=== PATIENT | female | born 1990 | race Asian ===

== ENCOUNTER 2021-02-03 18:41 | Emergency (ER) | payer OTHER ==
[2021-02-03 19:19] LABS: BASOPHILS % (AUTO) 0.5 %; EOSINOPHILS # (AUTO) 0.1 10^3/uL (0.0-0.7); EOSINOPHILS % (AUTO) 1.5 %; HGB - HEMOGLOBIN 12.5 g/dL (12.0-16.0); LYMPHOCYTES # (AUTO) 2.7 10^3/uL (1.5-3.5); LYMPHOCYTES % (AUTO) 31.8 %; MEAN CORPUSCULAR HGB CONC 32.9 g/dL (32.0-36.0); MEAN CORPUSCULAR VOLUME 91.3 fL (81.0-99.0); MEAN PLATELET VOLUME 8.9 fL (7.9-10.8); MONOCYTES # (AUTO) 0.6 10^3/uL (0.0-1.0); MONOCYTES % (AUTO) 7.5 %; NEUTROPHILS % (AUTO) 58.6 %; PLT - PLATELET COUNT 311 10^3/uL (130-450); RED BLOOD COUNT 4.16 10^6/uL (4.20-5.40); RED CELL DISTRIBUTION WIDTH 13.1 % (12.0-15.0); WHITE BLOOD COUNT 8.5 x10^3/uL (4.8-10.8)
[2021-02-03 19:26] LABS: CALCIUM 9.1 mg/dL (8.5-10.3); CREATININE 0.5 mg/dL (0.4-1.0); POTASSIUM 3.5 mmol/L (3.5-5.0)
--- NOTE | 2021-02-03 20:03 | ED Physician Documentation ---
PD HPI ABD PAIN - Stated complaint Stated Complaint: SPOTTING, +PREG - Chief complaint Chief Complaint: Abd Pain - History obtained from History obtained from: Patient, Family - Additional information Additional information: G1 at 8w with spotting snice ysterday and mild pelvic pain. Review of Systems Ten Systems: 10 systems reviewed and negative Constitutional: denies: Fever, Chills Nose: reports: Reviewed and negative Throat: reports: Reviewed and negative Cardiac: reports: Reviewed and negative PD PAST MEDICAL HISTORY - Past Medical History Past Medical History: No - Past Surgical History Past Surgical History: No - Allergies Allergies/Adverse Reactions: Allergies Allergy/AdvReac Type Severity Reaction Status Date / Time amoxicillin AdvReac Rash Verified 02/03/21 18:52 - Social History Does the pt smoke?: No Smoking Status: Never smoker Does the pt drink ETOH?: Yes Does the pt have substance abuse?: No - Immunizations Immunizations are current?: No PD ED PE NORMAL - Vitals Vital signs reviewed: Yes - General General: Alert and oriented X 3, No acute distress - Abdomen Abdomen: Normal bowel sounds, Soft, Non tender, Other (I believe I am able to identify intrauterine on bedside ultrasound, that said, detail is not good enough to identify heart tones.) - Neuro Neuro: Alert and oriented X 3, Normal speech Results - Vitals Vitals: Vital Signs - 24 hr 02/03/21 02/03/21 18:44 20:57 Temperature 36.8 C 36.2 C L Heart Rate 76 75 Respiratory 18 16 Rate Blood Pressure 132/76 H 102/55 L O2 Saturation 100 100 Oxygen O2 Source Room air - Labs Labs: Laboratory Tests 02/03/21 02/03/21 02/03/21 19:10 19:10 19:10 WBC 8.5 RBC 4.16 L Hgb 12.5 Hct 38.0 MCV 91.3 MCH 30.0 MCHC 32.9 RDW 13.1 Plt Count 311 MPV 8.9 Neut # (Auto) 5.0 Lymph # (Auto) 2.7 [place] # (Auto) 0.6 Eos # (Auto) 0.1 Baso # (Auto) 0.0 Absolute Nucleated RBC 0.00 Nucleated RBC % 0.0 Sodium 140 Potassium 3.5 Chloride 108 Carbon Dioxide 23 Anion Gap 9.0 BUN 8 Creatinine 0.5 Estimated GFR (MDRD) 145 Glucose 91 Calcium 9.1 HCG, Quant Blood Type A POSITIVE 02/03/21 19:10 WBC RBC Hgb Hct MCV MCH MCHC RDW Plt Count MPV Neut # (Auto) Lymph # (Auto) [place] # (Auto) Eos # (Auto) Baso # (Auto) Absolute Nucleated RBC Nucleated RBC % Sodium Potassium Chloride Carbon Dioxide Anion Gap BUN Creatinine Estimated GFR (MDRD) Glucose Calcium HCG, Quant 65639.00 Blood Type PD MEDICAL DECISION MAKING - ED course ED course: 30-year-old woman with likely miscarriage versus discordant with dates and too early to see heart tones. No evidence of ectopic. Repeat ultrasound in 1 week advised. Departure - Departure Disposition: Home, Self Care Clinical Impression: Threatened Condition: Good Record reviewed to determine appropriate education?: Yes Instructions: ED Miscarriage Poss Comments: Lab work was [place] [address] and a blood type of a positive. Otherwise labs were normal. Ultrasound shows intrauterine of unknown viability. The fetus looks smaller than we would expect based on your dates (5 weeks and 6 days) and no clear heart rate is detected. While no clear prognosis can be given based on the data collected tonight, it is possible you may miscarry, but also possible that the will go just fine. You should have a repeat ultrasound in 1 week to see what if anything has changed but also returning if you develop new or worrisome symptoms. Discharge Date/Time: 02/03/21 21:13
[2021-02-03 20:58] VITALS: BP 102/55
--- NOTE | 2021-02-03 21:02 | Ultrasound Report ---
PROCEDURE: OB First Trimester INDICATIONS: cramping/preg OUTSIDE/PRIOR DATING DATA: Last menstrual period (LMP): 11/24/2020. LMP-based estimated date of delivery (ANABELLE): 08/31/2021. First dating scan (date and location): 02/03/2021. Estimated date of delivery (ANABELLE) from first dating scan: 09/30/2021. The below data below was generated using the ultrasound generated AANBELLE of 09/30/2021 TECHNIQUE: Real-time scanning was performed of the fetus and maternal pelvic organs, with image documentation. COMPARISON: FINDINGS: There is a gestational sac in the uterine fundus measuring 2 cm. Their is an echogenic focus eccentri krzysztof located within the gestational sac measuring 3 mm, and this presumably represents an embryo, al though the size of this is less than expected relative to the size of the gestational sac. No h eart rate detected. Measurement variability in dating: +/- 4 weeks by LMP, +/- 7 days by mean sac diameter (use before 6 weeks gestation if crown-rump length not able to be measured), +/- 5 days by crown-rump length (6-12 weeks gestation). Maternal organs: Ovaries unremarkable. Corpus luteum cyst noted on the right. IMPRESSION: Findings of intrauterine with uncertain viability. There is an embryo within the gestationa l sac however no heartbeat is detected. This may represent a viable intrauterine with hear t rate not detected due to early gestational age and small size of the embryo. However, this finding raises concern for failed . Close clinical follow-up is recommended, including serial serum hCG measurements and repeat imaging. Reviewed by: Aleksander Garcia MD on 02/03/2021 9:01 PM PDT Approved by: Aleksnader Garcia MD on 02/03/2021 9:01 PM PDT Station ID: [id number]
--- NOTE | 2021-02-03 21:03 | Ultrasound Report ---
PROCEDURE: OB Transvaginal INDICATIONS: cramping/preg TECHNIQUE: Transvaginal imaging was performed. COMPARISON: None. FINDINGS/IMPRESSION: Transvaginal images are included in the transabdominal exam. Please see that rep ort for detailed findings. Reviewed by: Aleksander Garcia MD on 02/03/2021 9:02 PM PDT Approved by: Aleksander Garcia MD on 02/03/2021 9:02 PM PDT Station ID: [id number]
== END 2021-02-03 21:13 | disposition home or self-care (01) ==
LOC: ED 18:41
DX: O20.0 Threatened abortion (principal); Z3A.08 8 weeks gestation of pregnancy
CPT/HCPCS: 36415; 80048; 84702; 85025; 86900; 86901; 99283; 99284